=== PATIENT | male | born 1935 | race Caucasian/White ===

== ENCOUNTER 2017-10-22 17:12 | Emergency (ER) | payer MEDICARE, OTHER ==
[2017-10-22] MEDS ORDERED: IBUPROFEN 600 MG TABLET PO STA (17:46)
--- NOTE | 2017-10-22 17:47 | ED Physician Documentation ---
PD HPI LOWER EXT INJURY - Stated complaint Stated Complaint: GLF - Chief complaint Chief Complaint: Ext Problem - History obtained from History obtained from: Patient, Family - History of Present Illness PD HPI LOW EXT INJURY LOCATION: Right, Upper leg ([place] and fell and got hit directly in the right anterior thigh by log. He has had gradual onset pain that is now keeping him from walking although it did not initially. No other injuries.) Review of Systems Constitutional: reports: Reviewed and negative Nose: reports: Reviewed and negative Throat: reports: Reviewed and negative PD PAST MEDICAL HISTORY - Past Medical History Cardiovascular: Hypertension - Past Surgical History Past Surgical History: No - Present Medications Home Medications: Ambulatory Orders Medication Instructions Recorded Confirmed Olmesartan Medoxomil [Benicar] 5 mg PO BID 09/01/13 09/01/13 Propafenone [Rythmol] 150 mg PO DAILY 09/01/13 09/01/13 Lovastatin 10/22/17 - Allergies Allergies/Adverse Reactions: Allergies Allergy/AdvReac Type Severity Reaction Status Date / Time No Known Drug Allergies Allergy Verified 10/22/17 17:23 - Social History Does the pt smoke?: No Smoking Status: Never smoker Does the pt drink ETOH?: No - Immunizations Immunizations are current?: Yes PD ED PE NORMAL - Vitals Vital signs reviewed: Yes - General General: Alert and oriented X 3, No acute distress - Extremities Extremities: Other (There is tenderness and ecchymosis to the anterior mid right thigh without hip tenderness or pain with internal or external rotation of the hip or knee.) - Neuro Neuro: Alert and oriented X 3, Normal speech Results - Vitals Vitals: Vital Signs - 24 hr 10/22/17 17:20 Temperature 36.8 C Heart Rate 64 Respiratory 20 Rate Blood Pressure 158/71 H O2 Saturation 98 Oxygen O2 Source Room air - Rads (name of study) R femur XR Radiology: EMP read contemporaneously (negative) PD MEDICAL DECISION MAKING - ED course ED course: He took a direct hit to the anterior thigh, examination is inconsistent with a hip or pelvic fracture and femur x-rays are negative. He declines prescription pain medication. After x-ray he was able to walk and bear weight normally without any implements. - Sepsis Event Vital Signs: Vital Signs - 24 hr 10/22/17 17:20 Temperature 36.8 C Heart Rate 64 Respiratory 20 Rate Blood Pressure 158/71 H O2 Saturation 98 Oxygen O2 Source Room air Departure - Departure Disposition: 01 Home, Self Care Clinical Impression: Contusion of right leg Qualifiers: Encounter type: initial encounter Qualified Code(s): S80.11XA - Contusion of right lower leg, initial encounter Condition: Good Record reviewed to determine appropriate education?: Yes Instructions: ED Contusion Lower Ext Comments: Recheck with your doctor in a week, return if worse. Your blood pressure was elevated today on check into the emergency department. This does not mean that you have hypertension, it is a common phenomenon to come to the emergency department and have elevated blood pressure. I recommend that you see your primary care physician within the week to have it rechecked when you are feeling better.
--- NOTE | 2017-10-22 18:45 | XRAY Report ---
Procedure Date: 10/22/2017 Accession Number: [id number] / [id number] Procedure: XR - Femur 2V RT CPT Code: FULL RESULT: EXAM: RIGHT FEMUR RADIOGRAPHY EXAM DATE: 10/22/2017 06:35 PM. CLINICAL HISTORY: Leg inj. COMPARISON: None. TECHNIQUE: 2 views. FINDINGS: Bones: Normal. No fracture or bone lesion. Joints: The visualized hip and knee joints are normal. No effusions. Soft Tissues: Normal. No soft tissue swelling. IMPRESSION: Normal femur radiography. [facility]
[2017-10-22 19:12] VITALS: BP 155/67
== END 2017-10-22 19:12 | disposition home or self-care (01) ==
LOC: ED 17:12
DX: S70.11XA Contusion of right thigh, initial encounter (principal); W18.30XA Fall on same level, unspecified, initial encounter; Y93.39 Activity, other involving climbing, rappelling and jumping off; Y92.832 Beach as the place of occurrence of the external cause; I10 Essential (primary) hypertension
CPT/HCPCS: 73552; 99283; A9270